=== PATIENT | male | born 1975 | race Caucasian/White ===

== ENCOUNTER 2021-03-25 13:33 | Emergency (ER) | payer SELFPAY ==
[2021-03-25 15:16] LABS: BASOPHIL 0.6 % (0-2); HCT 47.4 % (42.0-52.0); HGB 14.9 g/dl (13.2-18.0); LYMPHOCYTE 13.9 % (15-48); MCHC 31.4 g/dL (32.0-36.0); MCV 85.9 fL (78.0-100.0); MONOCYTE 4.2 % (0-12); MPV 10.6 fL (6.0-9.5); NEUTROPHIL 79.8 % (41-80); NRBC 0; PLT 300 K/uL (150-400); RBC 5.52 M/uL (4.70-6.00); RDW 15.5 % (11.5-14.0); WBC 14.5 K/uL (4.0-10.5)
[2021-03-25 15:21] LABS: ALBUMIN 3.9 g/dL (3.4-5.0); BILIRUBIN - TOTAL 0.4 mg/dL (0.2-1.0); BUN/CREAT RATIO (CALC) 12.1 RATIO; CREATININE 0.91 mg/dL (0.67-1.17); GLOBULIN (CALCULATION) 4.1 g/dL; POTASSIUM 4.4 mmol/L (3.5-5.1)
[2021-03-25 15:26] LABS: BILIRUBIN NEGATIVE (NEGATIVE); BLOOD NEGATIVE Ery/uL (NEGATIVE); CLARITY CLEAR (CLEAR); COLOR YELLOW (YELLOW); GLUCOSE (U) NORMAL (NORMAL); LEUKOCYTES TRACE Leu/uL (NEGATIVE); NITRITE NEGATIVE (NEGATIVE); PROTEIN NEGATIVE (NEGATIVE); UROBILINOGEN 0.2 mg/dL (0.2-1.0)
[2021-03-25 15:32] LABS: URINARY WBC RARE
[2021-03-25 15:33] LABS: SQUAMOUS EPITHELIAL CELLS RARE
[2021-03-25] MEDS ORDERED: BENTYL10 MG PO (16:59)
== END 2021-03-25 17:17 | disposition home or self-care (01) ==
LOC: FER 13:33
PROVIDERS: Emergency Medicine
DX: R10.32 Left lower quadrant pain (principal); F17.210 Nicotine dependence, cigarettes, uncomplicated
CPT/HCPCS: 36415; 74022; 80053; 81001; 85025; Q9967